=== PATIENT | female | born 1990 | race Caucasian/White ===

== ENCOUNTER 2020-06-17 06:12 | Emergency (ER) | payer OTHER ==
[2020-06-17 07:00] LABS: ABSOLUTE LYMPHOCYTES (AUTO) 1.2 10^3/uL (0.5-4.7); ABSOLUTE MONOCYTES (AUTO) 0.8 10^3/uL (0.1-1.4); ABSOLUTE NEUT (AUTO) 5.5 10^3/uL (1.7-8.2); BASOPHILS % (AUTO) 0.3 % (0-2); EOSINOPHILS % (AUTO) 0.2 % (0-6); HEMATOCRIT 43.1 % (36.0-47.0); HEMOGLOBIN 14.8 g/dL (12.0-15.5); MEAN CORPUSCULAR HEMOGLOBIN 28.7 pg (27.0-33.4); MEAN CORPUSCULAR HGB CONC 34.4 g/dL (32.0-36.0); MEAN CORPUSCULAR VOLUME 83 fl (80-97); MONOCYTES % (AUTO) 10.8 % (3-13); PLATELET COUNT 211 10^3/uL (150-450); RED BLOOD COUNT 5.17 10^6/uL (3.72-5.28); RED CELL DISTRIBUTION WIDTH 14.1 % (11.5-14.0); SEGMENTED NEUTROPHILS % (AUTO) 72.7 % (42-78); TOTAL CELLS COUNTED % (AUTO) 100 %; WHITE BLOOD COUNT 7.6 10^3/uL (4.0-10.5)
[2020-06-17] MEDS ORDERED: ONDANSETRON HCL INJ/PF 4 MG/2 ML SDV IV ONE (07:15)
[2020-06-17] MEDS ORDERED: MORPHINE SULFATE 10 MG/ML INJ IV ONE (07:15)
--- NOTE | 2020-06-17 07:18 | ER Document Report ---
ED General <VIKAS LARKIN - Last Filed: 06/17/20 07:41> <FELTON SAUCEDO - Last Filed: 06/17/20 17:32> - General Chief Complaint: Chest Pain Stated Complaint: CHEST PAIN Time Seen by Provider: 06/17/20 07:08 Primary Care Provider: PABLO SWAN PA [NO LOCAL MD] - Follow up tomorrow TORI CHRISTOHPER MD [ACTIVE STAFF] - Follow up as needed Notes: CHIEF COMPLAINT: Abdominal pain and chest pain HPI: 30-year-old female presenting for evaluation of right-sided chest pain with radiation into the back that woke her from sleep around 2 AM. Had slight nausea no vomiting. Yesterday patient states she had pain through the right side of the abdomen that lasted about 3 or 4 hours then seemed to resolve. States she had a fever at that time. Did not actually measure the fever. Patient reports history of cholecystectomy 6 years ago. ROS: See HPI - all other systems were reviewed and are otherwise negative Constitutional: no fever Eyes: no drainage, no blurred vision ENT: no runny nose, no sore throat Cardiovascular: + chest pain Resp: no SOB, no cough GI: no vomiting, no diarrhea, + abdominal pain, positive nausea : no dysuria Integumentary: no rash Allergy: no hives Musculoskeletal: no extremity pain or swelling Neurological: no numbness/tingling, no weakness MEDICATIONS: I agree with the patient medications as charted by the RN. ALLERGIES: I agree with the allergies as charted by the RN. PAST MEDICAL HISTORY/PAST SURGICAL HISTORY: Reviewed and agree as charted by RN. SOCIAL HISTORY: Reviewed and agree as charted by RN. FAMILY HISTORY: No significant familial comorbid conditions directly related to patient complaint EXAM: Reviewed vital signs as charted by RN. CONSTITUTIONAL: Alert and oriented and responds appropriately to questions. Well-appearing; well-nourished HEAD: Normocephalic; atraumatic EYES: PERRL; Conjunctivae clear, sclerae non-icteric ENT: normal nose; no rhinorrhea; moist mucous membranes; pharynx without lesions noted, no uvula edema or deviation, no tonsillar hypertrophy, phonation normal NECK: Supple without meningismus; non-tender; no cervical lymphadenopathy, no masses CARD: RRR; no murmurs, no clicks, no rubs, no gallops; symmetric distal pulses RESP: Normal chest excursion without splinting or tachypnea; breath sounds clear and equal bilaterally; no wheezes, no rhonchi, no rales, pulse oximetry 97% on room air not hypoxic ABD/GI: Obese, speech normal bowel sounds; non-distended; soft, moderate tenderness to the right periumbilical and right lower quadrant region on palpation with guarding. Positive rebound; no palpable organomegaly or masses. BACK: The back appears normal and is non-tender to palpation, there is no CVA tenderness EXT: Normal ROM in all joints; non-tender to palpation; no cyanosis, no effusions, no edema SKIN: Normal color for age and race; warm; dry; good turgor; no acute lesions noted NEURO: Moves all extremities equally; Motor and sensory function intact PSYCH: The patient's mood and manner are appropriate. Grooming and personal hygiene are appropriate. MDM: 30-year-old female presenting for right-sided abdominal pain with a fever yesterday right chest pain with radiation into the back today. No dysuria. Does have tenderness and guarding in the right lower quadrant, relates that she still has her appendix. Initial screening cardiac labs placed in triage given the patient's complaint of right-sided chest pain but she has fairly significant reproducible right lower quadrant abdominal pain we will plan to obtain CT to evaluate for appendicitis. (VIKAS LARKIN) - Related Data Allergies/Adverse Reactions: promethazine [From Phenergan] Allergy (Mild, Verified 06/17/20 06:34) Past Medical History - Social History Smoking Status: Never Smoker Chew tobacco use (# tins/day): No Frequency of alcohol use: None Drug Abuse: None Family History: Reviewed & Not Pertinent Patient has homicidal ideation: No - Immunizations Hx Diphtheria, Pertussis, Tetanus Vaccination: Yes <VIKAS LARKIN - Last Filed: 06/17/20 07:41> Physical Exam - Vital signs Vitals: Temp Pulse Resp BP Pulse Ox 98.5 F 105 H 18 152/99 H 97 06/17/20 06:28 06/17/20 06:28 06/17/20 06:28 06/17/20 06:28 06/17/20 06:28 Course - Laboratory Result Diagrams: 06/17/20 06:38 06/17/20 06:38 <VIKAS LARKIN - Last Filed: 06/17/20 07:41> - Laboratory Result Diagrams: 06/17/20 06:38 06/17/20 06:38 - Diagnostic Test Radiology reviewed: Reports reviewed <FELTON SAUCEDO - Last Filed: 06/17/20 17:32> - Re-evaluation Re-evalutation: 06/17/20 07:41 report will be given to oncoming shift to follow and disposition, CT/Labs pending (VIKAS LARKIN) 06/17/20 09:00 Patient states that abdominal pain at this time is resolved although she does complain of continued right upper anterior chest wall tenderness that improves with palpation. 06/17/20 11:[address] Patten, Dr. Patten to bedside for examination. Discussed patient's diagnostic evaluation including imaging studies. Recommends placing patient on an NSAID for chest wall pain. Advises having patient see her primary doctor for further evaluation of the incidental finding of pericardial cyst as well as mild thickening of terminal ileum. 06/17/20 11:48 Presentation of chest pain in an otherwise well appearing patient. Low clinical suspicion for ACS given clinical history, exam, EKG without ST elevations or depressions, and negative initial troponin. HEART score less than or equal to 3. PE also seems unlikely given clinical history, absence of tachycardia or dyspnea. CXR without evidence of pneumothorax or pneumonia. No widened mediastinum. Patient with incidental finding of pericardial cyst, patient given a copy of her CT report and encouraged to follow-up with her primary doctor and cardiology on outpatient basis. Chest pain in a patient without evidence of cardiac or other serious etiology on workup today. I discussed with patient that, based on their age, risk factors and emergency department testing today, the likelihood that their symptoms are related to a heart attack is very low. The patient demonstrates decision making capacity and has verbalized an understanding of these risks to me. Based on this, the patient has chosen to follow-up as an outpatient. Usual chest pain return precautions reviewed. The patient states understanding and agreement with this plan. Patient's abdomen soft, patient denies any abdominal tenderness at this time. Patient presents with abdominal pain without signs of peritonitis or other life-threatening or serious etiology. Patient appears stable for discharge and has been instructed to return immediately if the symptoms worsen in any way. (FELTON SAUCEDO) - Vital Signs Vital signs: Temp Pulse Resp BP Pulse Ox 98.1 F 105 H 19 151/84 H 98 06/17/20 12:01 06/17/20 06:28 06/17/20 08:01 06/17/20 08:01 06/17/20 08:01 - Laboratory Laboratory results interpreted by me: 06/17/20 06/17/20 06/17/20 06:38 06:38 09:00 RDW 14.1 H Sodium 134.0 L Urine Ketones 20 H Urine Blood SMALL H 06/17/20 11:49 Labs- All tests 24 hr 06/17/20 06/17/20 06/17/20 06:38 06:38 06:38 WBC 7.6 RBC 5.17 Hgb 14.8 Hct 43.1 MCV 83 MCH 28.7 MCHC 34.4 RDW 14.1 H Plt Count 211 Lymph % (Auto) 16.0 Motley % (Auto) 10.8 Eos % (Auto) 0.2 Baso % (Auto) 0.3 Absolute Neuts (auto) 5.5 Absolute Lymphs (auto) 1.2 Absolute Monos (auto) 0.8 Absolute Eos (auto) 0.0 Absolute Basos (auto) 0.0 Seg Neutrophils % 72.7 Sodium 134.0 L Potassium 4.2 Chloride 102 Carbon Dioxide 23 Anion Gap 9 BUN 10 Creatinine 0.62 Est GFR ( Amer) > 60 Est GFR (MDRD) Non-Af > 60 Glucose 101 Calcium 9.1 Total Bilirubin 1.2 Direct Bilirubin 0.0 Neonat Total Bilirubin Not Reportable Neonat Direct Bilirubin Not Reportable Neonat Indirect Bili Not Reportable AST 30 ALT 30 Alkaline Phosphatase 121 Creatine Kinase 52 CK-MB (CK-2) < 0.22 Troponin I < 0.012 Total Protein 7.9 Albumin 4.2 Lipase Serum HCG, Qual Urine Color Urine Appearance Urine pH Ur Specific [place] Urine Protein Urine Glucose (UA) Urine Ketones Urine Blood Urine Nitrite Urine Bilirubin Urine Urobilinogen Ur Leukocyte Esterase Urine WBC (Auto) Urine RBC (Auto) U Hyaline Cast (Auto) Squamous Epi Cells Auto Urine Mucus (Auto) Urine Ascorbic Acid 06/17/20 06/17/20 06/17/20 06:38 06:38 09:00 WBC RBC Hgb Hct MCV MCH MCHC RDW Plt Count Lymph % (Auto) Mot[place] % (Auto) Eos % (Auto) Baso % (Auto) Absolute Neuts (auto) Absolute Lymphs (auto) Absolute Monos (auto) Absolute Eos (auto) Absolute Basos (auto) Seg Neutrophils % Sodium Potassium Chloride Carbon Dioxide Anion Gap BUN Creatinine Est GFR ( Amer) Est GFR (MDRD) Non-Af Glucose Calcium Total Bilirubin Direct Bilirubin Neonat Total Bilirubin Neonat Direct Bilirubin Neonat Indirect Bili AST ALT Alkaline Phosphatase Creatine Kinase CK-MB (CK-2) Troponin I Total Protein Albumin Lipase 50.9 Serum HCG, Qual NEGATIVE Urine Color YELLOW Urine Appearance SLIGHTLY-CLOUDY Urine pH 5.0 Ur Specific [place] 1.013 Urine Protein NEGATIVE Urine Glucose (UA) NEGATIVE Urine Ketones 20 H Urine Blood SMALL H Urine Nitrite NEGATIVE Urine Bilirubin NEGATIVE Urine Urobilinogen NEGATIVE Ur Leukocyte Esterase NEGATIVE Urine WBC (Auto) 1 Urine RBC (Auto) 5 U Hyaline Cast (Auto) 1 Squamous Epi Cells Auto 6 Urine Mucus (Auto) FEW Urine Ascorbic Acid NEGATIVE 06/17/20 10:29 WBC RBC Hgb Hct MCV MCH MCHC RDW Plt Count Lymph % (Auto) [place] % (Auto) Eos % (Auto) Baso % (Auto) Absolute Neuts (auto) Absolute Lymphs (auto) Absolute Monos (auto) Absolute Eos (auto) Absolute Basos (auto) Seg Neutrophils % Sodium Potassium Chloride Carbon Dioxide Anion Gap BUN Creatinine Est GFR ( Amer) Est GFR (MDRD) Non-Af Glucose Calcium Total Bilirubin Direct Bilirubin Neonat Total Bilirubin Neonat Direct Bilirubin Neonat Indirect Bili AST ALT Alkaline Phosphatase Creatine Kinase CK-MB (CK-2) Troponin I < 0.012 Total Protein Albumin Lipase Serum HCG, Qual Urine Color Urine Appearance Urine pH Ur Specific [place] Urine Protein Urine Glucose (UA) Urine Ketones Urine Blood Urine Nitrite Urine Bilirubin Urine Urobilinogen Ur Leukocyte Esterase Urine WBC (Auto) Urine RBC (Auto) U Hyaline Cast (Auto) Squamous Epi Cells Auto Urine Mucus (Auto) Urine Ascorbic Acid (FELTON SAUCEDO) Discharge <VIKAS LARKIN - Last Filed: 06/17/20 07:41> <FELTON SAUCEDO - Last Filed: 06/17/20 17:32> - Discharge Clinical Impression: Chest wall pain, Pericardial cyst Abdominal pain Qualifiers: Abdominal location: unspecified location Qualified Code(s): R10.9 - Unspecified abdominal pain Condition: Stable Disposition: HOME, SELF-CARE Instructions: Abdominal Pain ([facility]), Anti-Inflammatory Medication ([facility]), Chest Wall Pain ([facility]), Growth or Mass, Pending Workup ([facility]) Additional Instructions: Return immediately for any new or worsening symptoms: Worsening pain, cough, shortness of breath, abdominal tenderness, vomiting or any concerning new symptoms Followup with your primary care provider, call tomorrow to make a followup appointment Follow-up with your primary doctor, they can make referrals for you for further evaluation of pericardial cyst. Prescriptions: Lidocaine [Lidoderm 5% (700 mg) Transdermal Patch] 1 patch TP DAILY PRN #10 adh..patch PRN Reason: Naproxen [Naprosyn 250 Nmg Tablet] 1 tab PO BID #14 tablet Referrals: TORI CHRISTOPHER MD [ACTIVE STAFF] - Follow up as needed PABLO SWAN PA [NO LOCAL MD] - Follow up tomorrow
--- NOTE | 2020-06-17 07:21 | RADIOLOGY REPORT (SQ) ---
CLINICAL HISTORY: chest pain, pain with deep breaths COMPARISON: None. TECHNIQUE: XR CHEST 2 VIEWS 06/17/2020 12:00 AM CDT FINDINGS: Cardiac silhouette is normal in size. Lungs are clear without consolidation, atelectasis, mass or edema. There is no pleural effusion. There is no pneumothorax. There are no acute osseous findings. IMPRESSION: Clear lungs.
[2020-06-17 07:30] LABS: ALBUMIN 4.2 g/dL (3.5-5.0); ALKALINE PHOSPHATASE 121 U/L (38-126); ANION GAP 9 (5-19); ASPARTATE AMINO TRANSFERASE 30 U/L (14-36); BILIRUBIN,TOTAL 1.2 mg/dL (0.2-1.3); BLOOD UREA NITROGEN 10 mg/dL (7-20); CALCIUM 9.1 mg/dL (8.4-10.2); CARBON DIOXIDE 23 mmol/L (22-30); CHLORIDE 102 mmol/L (98-107); CREATINE KINASE 52 U/L (30-135); GLUCOSE 101 mg/dL (75-110); TOTAL PROTEIN 7.9 g/dL (6.3-8.2)
[2020-06-17 07:35] LABS: POTASSIUM 4.2 mmol/L (3.6-5.0)
[2020-06-17 07:43] LABS: CREATINE KINASE MB < 0.22 ng/mL (<4.55); TROPONIN I < 0.012 ng/mL
--- NOTE | 2020-06-17 08:19 | EKG REPORT ---
SEVERITY:- NORMAL ECG - SINUS RHYTHM : Confirmed by: Kolton Lima 17-Jun-2020 08:18:48
[2020-06-17 08:38] VITALS: BP 151/84
[2020-06-17] MEDS ORDERED: NORMAL SALINE 1000 ML 1,000 ML IV ONE (09:11)
[2020-06-17 09:20] LABS: APPEARANCE,URINE SLIGHTLY-CLOUDY; BILIRUBIN,URINE NEGATIVE (NEGATIVE); COLOR,URINE YELLOW; GLUCOSE, URINE NEGATIVE (NEGATIVE); KETONES,URINE 20 mg/dL (NEGATIVE); LEUKOCYTE ESTERASE,URINE NEGATIVE (NEGATIVE); NITRITE,URINE NEGATIVE (NEGATIVE); PROTEIN,URINE NEGATIVE (NEGATIVE); URINE SPECIFIC GRAVITY 1.013; UROBILINOGEN,URINE NEGATIVE mg/dL (<2.0)
--- NOTE | 2020-06-17 10:32 | RADIOLOGY REPORT (SQ) ---
EXAM DESCRIPTION: CTA CHEST IMAGES COMPLETED DATE/TIME: 06/17/2020 10:16 am REASON FOR STUDY: cp COMPARISON: Conventional radiographs obtained earlier same day. TECHNIQUE: CT scan of the chest performed using helical scanning technique with dynamic intravenous contrast injection. Images reviewed with lung, soft tissue and bone windows. Reconstructed coronal and sagittal MPR images reviewed. Additional 3 dimensional post-processing performed to develop Maximal Intensity Projection images (IL P). All images stored on PACS. All CT scanners at this facility use dose modulation, iterative reconstruction, and/or weight based d osing when appropriate to reduce radiation dose to as low as reasonably achievable (ALARA). [facility]: Dose Right [facility]: CareDose [facility]: Dose Right [facility]: Teradose 4D [facility]: [employer] CONTRAST TYPE AND DOSE: contrast/concentration: Isovue 350.00 mmol/ml; Total Contrast Delivered: 100 .0 ml; Total Saline Delivered: 70.0 ml Contrast bolus optimized for the pulmonary arteries. Not diagnostic for the aorta. RENAL FUNCTION: BUN 10, creatinine 0.62 RADIATION DOSE: CT Rad equipment meets quality standard of care and radiation dose reduction techniq ues were employed. CTDIvol: 6.6 - 40.6 mGy. DLP: 4930 mGy-cm. . LIMITATIONS: None. FINDINGS: LUNGS AND PLEURA: No masses, infiltrates, or pneumothorax. No pleural effusions or pleura l calcifications. AORTA AND GREAT VESSELS: No aneurysm. Contrast bolus not optimized for the aorta. HEART: No pericardial effusion. No significant coronary artery calcifications. Small fluid collectio n adjacent to the right ventricle most likely pericardial cyst. This measures 3 cm in greatest diame ter. PULMONARY ARTERIES: No emboli visualized in the main pulmonary arteries or the segmental branches. HILAR AND MEDIASTINAL STRUCTURES: No identified masses or abnormal nodes. HARDWARE: None in the chest. UPPER ABDOMEN: No significant findings. Limited exam. THYROID AND OTHER SOFT TISSUES: Small bilateral thyroid nodules. The largest measures 6 mm in diamet er. BONES: No acute or significant finding. 3D MIPS: Confirm above findings. OTHER: No other significant finding. IMPRESSION: 1. No pulmonary emboli. 2. Small pericardial fluid collection most likely pericardial cyst. COMMENT: Quality ID # [id number]: Final reports with documentation of one or more dose reduction techniques (e.g., Automated exposure control, adjustment of the mA and/or kV according to patient size, use of iterative reconstruction technique) TECHNICAL DOCUMENTATION: JOB ID: [id number] 2010 [employer]- All Rights Reserved Reading location - IP/workstation name: [email or web address]
--- NOTE | 2020-06-17 10:38 | RADIOLOGY REPORT (SQ) ---
EXAM DESCRIPTION: CT ABD/PELVIS WITH IV ORAL IMAGES COMPLETED DATE/TIME: 06/17/2020 10:16 am REASON FOR STUDY: RLQ pain COMPARISON: None. TECHNIQUE: CT scan of the abdomen and pelvis performed using helical scanning technique with dynamic intravenous contrast injection. No oral contrast. Images reviewed with lung, soft tissue, and bone windows. Reconstructed coronal and sagittal MPR images reviewed. Delayed images for evaluation of the urinary system also acquired. All images stored on PACS. All CT scanners at this facility use dose modulation, iterative reconstruction, and/or weight based d osing when appropriate to reduce radiation dose to as low as reasonably achievable (ALARA). [facility]: Dose Right [facility]: CareDose [facility]: Dose Right [facility]: Teradose 4D [facility]: [employer] CONTRAST TYPE AND DOSE: 100 mL Omnipaque 350 RENAL FUNCTION: BUN 10, creatinine 0.62 RADIATION DOSE: . LIMITATIONS: None. FINDINGS: LOWER CHEST: No significant findings. No nodules or infiltrates. LIVER: Small cyst in the right lobe anteriorly. No suspicious findings. SPLEEN: Normal size. No focal lesions. PANCREAS: No masses. No significant calcifications. No adjacent inflammation or peripancreatic fluid collections. Pancreatic duct not dilated. GALLBLADDER: Surgically absent. ADRENAL GLANDS: No significant masses or asymmetry. RIGHT KIDNEY AND URETER: No solid masses. No significant calcifications. No hydronephrosis or hyd roureter. LEFT KIDNEY AND URETER: No solid masses. No significant calcifications. No hydronephrosis or hydr oureter. AORTA AND VESSELS: No aneurysm. No dissection. Renal arteries, SMA, celiac without stenosis. RETROPERITONEUM: No retroperitoneal adenopathy, hemorrhage or masses. BOWEL AND PERITONEAL CAVITY: Very slight thickening of the terminal ileum near the ileocecal valve. No definite surrounding inflammatory changes. This may be secondary to nondistention. Mild terminal ileitis cannot be excluded. APPENDIX: Normal. PELVIS: No mass. No free fluid. Normal bladder. ABDOMINAL WALL: Small defect in the anterior abdominal wall this contains omental fat only. BONES: No significant or acute findings. OTHER: No other significant finding. IMPRESSION: Very slight thickening of the terminal ileum is suggested on CT imaging as described. N o inflammatory changes. Findings are nonspecific. The appendix is normal. TECHNICAL DOCUMENTATION: JOB ID: [id number] Quality ID # [id number]: Final reports with documentation of one or more dose reduction techniques (e.g., Au tomated exposure control, adjustment of the mA and/or kV according to patient size, use of iterative reconstruction technique) 2010 [employer]- All Rights Reserved Reading location - IP/workstation name: [email or web address]
--- NOTE | 2020-06-17 11:30 | ER Document Report ---
Doctor's Note Notes: 06/17/20 11:28 This is a 30-year-old female I was asked see along with midlevel provider for evaluation of chest discomfort. Patient's heart score is 0. She has reproducible chest wall tenderness on my exam. Her chest is clear her cardiac rhythm is regular without murmur gallop or rub. Vital signs are normal. Patient has a normal twelve-lead EKG and a normal troponin. Prior to my evaluation patient already had a chest CT which suggested a small pericardial cyst but no evidence of pulmonary embolus. I think the finding of a pericardial cyst is in all probability unrelated to her current symptoms. I recommend treatment for her chest wall pain and follow-up with primary care provider.
[2020-06-17] MEDS ORDERED: KETOROLAC TROMETHAMINE INJ/PF 30 MG/1 ML SDV IV ONE (11:32)
== END 2020-06-17 12:01 | disposition home or self-care (01) ==
LOC: ER 06:12
DX: R07.89 Other chest pain (principal); R11.0 Nausea; R10.31 Right lower quadrant pain; R10.813 Right lower quadrant abdominal tenderness; R10.815 Periumbilic abdominal tenderness; Q24.8 Other specified congenital malformations of heart; Z88.8 Allergy status to other drugs, medicaments and biological substances
CPT/HCPCS: 93005; 99285; 96374; 96375; 36415; 82553; 82550; 83690; 84703; 85025; 80053; 81001; 84484; 71046; 71275; 74177; 93010; J1885; J2270; J2405